=== PATIENT | male | born 1935 | race Hispanic/Latino ===

== ENCOUNTER 2023-11-13 10:16 | Emergency (ER) | payer MEDICARE ==
[~2023-11-13] VITALS: Ht 160 cm; Wt 74.4 kg
[2023-11-13 11:27] LABS: BASOPHILS # (AUTO) 0.1 (0.0-0.1); BASOPHILS % 0.9 % (0.0-1.0); EOSINOPHILS # (AUTO) 0.2 (0.0-0.4); EOSINOPHILS % 1.4 % (0.0-6.0); HEMATOCRIT 37.2 % (38.2-49.6); HEMOGLOBIN 12.1 g/dL (14.0-18.0); LYMPHOCYTES # (AUTO) 1.8 (1.0-3.2); LYMPHOCYTES % 16.6 % (18.0-39.1); MEAN CORPUSCULAR HEMOGLOBIN 28.9 pg (28-32); MEAN CORPUSCULAR HGB CONC 32.5 g/dL (31-35); MONOCYTES # (AUTO) 0.6 (0.2-0.8); MONOCYTES % 5.8 % (4.4-11.3); NEUTROPHILS # (AUTO) 7.7 (2.1-6.9); NEUTROPHILS % 72.9 % (38.7-80.0); PLATELET COUNT 398 x10e3/uL (140-360); RED BLOOD COUNT 4.18 x10e6/uL (4.3-5.7); RED CELL DISTRIBUTION WIDTH 13.9 % (11.7-14.4); WHITE BLOOD COUNT 10.54 x10e3/uL (4.8-10.8)
[2023-11-13 11:40] LABS: INR 1.11; PROTHROMBIN TIME 14.9 seconds (11.9-14.5)
[2023-11-13] MEDS: SODIUM CHLORIDE 0.9% 1000ML 1,000 ML IV STA (11:41)
[2023-11-13] MEDS: ONDANSETRON HCL INJ 2MG/ML 2ML 2 MG/ML VIAL IV STA (11:41)
[2023-11-13 12:03] LABS: ALBUMIN 3.1 g/dL (3.5-5.0); ALBUMIN/GLOBULIN RATIO 0.6 (0.8-2.0); BILIRUBIN,TOTAL 0.4 mg/dL (0.2-1.2); CREATININE, SERUM 3.14 mg/dL (0.72-1.25); TOTAL PROTEIN 7.9 g/dL (6.5-8.1)
[2023-11-13 12:23] LABS: THYROID STIMULATING HORMONE 2.843 uIU/mL (0.350-4.940); TROPONIN I 0.006 ng/mL (0-0.300)
[2023-11-13 12:59] LABS: ANION GAP 17.1 mmol/L (8-16); CALCIUM 9.4 mg/dL (8.0-10.3); POTASSIUM 5.1 mmol/L (3.0-5.1)
[2023-11-13 13:02] LABS: BILIRUBIN,URINE NEGATIVE (NEGATIVE); CLARITY,URINE CLOUDY (CLEAR); COLOR,URINE YELLOW (YELLOW); GLUCOSE, URINE 1+ (NEGATIVE); KETONES,URINE NEGATIVE (NEGATIVE); LEUKOCYTE ESTERASE ,URINE TRACE (NEGATIVE); NITRITE,URINE NEGATIVE (NEGATIVE); PH,URINE 5.5 (5 - 7); PROTEIN,URINE DIPSTICK 2+ (NEGATIVE); URINE UROBILINOGEN 0.2 mg/dL (0.2 - 1)
[2023-11-13 13:06] LABS: BACTERIA,URINE FEW /HPF; EPITHELIAL CELLS,URINE FEW /LPF; RBC,URINE 0-5 /HPF (0-5); WBC,URINE (MAN) >50 /HPF (0-5)
[2023-11-13] MEDS: Vancomycin IV 1 GM in SODIUM CHLORIDE 0.9% 250ML 250 ML IV ONE (17:01)
[2023-11-13] MEDS: LIDOCAINE JELLY 2% 10ML URO-JET TOP STA (18:57)
[2023-11-13 19:45] VITALS: PULSE 67; RESP 16; TEMP 97.9; O2SAT 100
== END 2023-11-13 20:00 | disposition other institution (70) ==
LOC: ER 10:58
DX: R53.1 Weakness (principal); N39.0 Urinary tract infection, site not specified; R33.9 Retention of urine, unspecified; N17.9 Acute kidney failure, unspecified; Z11.52 Encounter for screening for COVID-19; R94.31 Abnormal electrocardiogram [ECG] [EKG]
CPT/HCPCS: 36415; 70450; 71045; 80053; 81001; 82550; 82948; 83735; 83880; 84443; 84484; 85025; 85610; 85730; 87086; 87186; 87400; 93005; 99284; J0696; J2405; J2470; J3370; J7030; J7050; U0002